=== PATIENT | male | born 1970 | race Caucasian/White ===

== ENCOUNTER → 2025-03-28 | Outpatient (CLI) | payer SELFPAY ==
--- NOTE | 2025-03-28 06:46 | CT_ITS ---
PROCEDURE: LIMITED CHEST CT CARDIAC ONLY 03/28/2025 REASON FOR EXAM: FAM HX CAD TECHNIQUE: Procedure Code: [id number] Modality: CT Procedure: LIMITED CHEST CT CARDIAC ONLY CONTRAST: None One or more dose reduction techniques were used (e.g., Automated exposure control, adjustment of the mA and/or kV according to patient size, use of iterative reconstruction technique). RADIATION DOSE SUMMARY: CTDlvol: 12.19 mGy DLP: 219.42 mGycm COMPARISON: None FINDINGS: Coronary artery calcification. The heart is nonenlarged. The visualized portions of the lungs are unremarkable. CT/Limited Chest CT Cardiac Only IMPRESSION: Coronary artery calcification. The lungs are clear. Reading Location: [place] [id number]
--- NOTE | 2025-03-28 16:24 | CA.SCORE ---
Calcium Scoring Date of Study:: 03/28/25 Indications Indications: Family history Coronary Calcium Scoring: High-resolution Computed Tomographic imaging of the chest was performed on [03/28/2025], with particular attention paid to the coronary arteries. Images from the examination were analyzed for the presence and extent of coronary artery calcification , using coronary calcium quantification software. The patient tolerated the procedure well and there were no complications. The results of the coronary calcification analysis are provided below. Findings Coronary Artery Left Main (LM): 0 Left Anterior Descending (LAD): 22.3 Left Circumflex (LCX): 23.6 Right Coronary Artery (RCA): 6.95 Total Agatston Score: 52.85 Percentile Rankin-75th percentile Calcium Scoring Interpretation: Different methods to categorize the overall amount of coronary plaque. Overall amount CAC SIS Visual of coronary plaque P1 Mild -100 <2 1-2 vessels with mild amount of plaque P2 Moderate 101-300 3-4 1-2 vessels with moderate amount, 3 vessels with mild amount of plaque P3 Severe 301-999 5-7 3 vessels with moderate amount, 1 vessel with severe amount of plaque P4 Extensive >1000 >8 2-3 vessels with severe amount of plaque Calcium Score: Mild: 1-2 vessels w/mild amount of plaque Conclusion: Mild three-vessel atherosclerotic plaquing present.
== END | disposition home or self-care (01) ==
PROVIDERS: PCP Nurse Practitioner Family; Referring Provider Nurse Practitioner Family; Visit Provider Nurse Practitioner Family
DX: I25.10 Atherosclerotic heart disease of native coronary artery without angina pectoris (principal); Z82.49 Family history of ischemic heart disease and other diseases of the circulatory system
CPT/HCPCS: 75571; 76380